=== PATIENT | male | born 1970 | race Caucasian/White ===

== ENCOUNTER → 2017-05-01 | Outpatient (CLI) | payer BC ==
--- NOTE | 2017-05-01 20:28 | CT ---
EXAMINATION TYPE: CT sinus wo con DATE OF EXAM: 05/01/2017 COMPARISON: NONE HISTORY: Recurrent sinus infections. CT DLP: 641.60 mGycm. Automated Exposure Control for Dose Reduction was Utilized. TECHNIQUE: CT scan of the sinuses is performed without contrast, axial images are obtained, coronal r eformatted images are also reviewed. FINDINGS: There is minimal mucosal thickening at the floor of the left maxillary sinus. There is bila teral patency of the ostiomeatal complex. Maxilla is intact. I see no bony destructive process. There is mild mucosal thickening in the anterior ethmoid and frontal sinuses. Orbital margins are intact.. IMPRESSION: Mild sinusitis as above.
== END | disposition home or self-care (01) ==
LOC: RADCTMAIN 18:44
PROVIDERS: ATTEND Otolaryngology
DX: J32.9 Chronic sinusitis, unspecified (principal)
CPT/HCPCS: 70486

== ENCOUNTER → 2018-03-07 | Day surgery (SDC) | payer BC ==
[2018-03-01 16:32] VITALS: BMI 33.5
[~2018-03-07] MED LIST: PROPOFOL 10 MG/ML 20 ML VIAL IV ONE
--- NOTE | 2018-03-07 13:50 | PCN ---
PROCEDURE NOTE REQUESTING PHYSICIAN: Dr. Mccauley INDICATION: The patient is a 47-year-old pleasant white male scheduled for an elective colonoscopy as a part of evaluation of change in bowel habits and intermittent rectal bleeding for the last several months duration. He is, hence, scheduled for a colonoscopy to evaluate further. PROCEDURE PERFORMED: Performed colonoscopy with biopsy. PREOPERATIVE DIAGNOSES: Change in bowel habits and intermittent rectal bleeding. IV sedation per Anesthesia. PROCEDURE: The procedure after informed consent was obtained, the patient was brought into the endoscopy unit. IV conscious sedation was administered by Anesthesia under continuous monitoring. Initial digital rectal examination was normal. The Olympus CA190 colonoscope was then inserted into the rectum and gradually advanced into the cecum without any difficulty. Careful examination was performed as the scope was gradually being withdrawn. The ileocecal valve and appendiceal orifice were visualized and appeared normal. The prep was excellent. The terminal ileum was intubated, 10 cm of the terminal ileum was visualized and appeared normal. Mucosa of the cecum, ascending colon, transverse colon, descending colon, sigmoid colon and rectum appeared normal. In the rectum, there was a 2 to 3 mm sessile polyp that was removed by biopsy. Random biopsies were also done from the ascending and descending colon to rule out microscopic/collagenous colitis. Small internal hemorrhoids were seen. The patient tolerated the procedure well. IMPRESSION: 1. Small internal hemorrhoids. 2. A 2 to 3 mm sessile distal rectal polyp status post removal by biopsy. RECOMMENDATIONS: The findings of this examination were discussed with the patient as well as his family. He was advised to follow with biopsy results. In the meantime, he can use over-the- counter Imodium as needed for the chronic diarrhea. If the biopsies show a tubular adenoma, he can have a repeat colonoscopy in 5 years. MMODL / IJN: [id number] /
--- NOTE | 2018-03-10 20:16 | CDI ---
Date: 03/10/18 CDS/Slat Basket Maker Helper Machine Name: Johnna Valle Phone: If any questions, call Lorenza Bravo [employer] at [phone] Patient Name: Mehran Puentes Admit Date: 03/07/18 Discharge Date: 03/07/18 ATTENTION: The [facility] Coding Staff appreciate your assistance in clarifying documentation. Please respond to the clarification below the line at the bottom and electronically sign. The [facility] Coding staff will review the response and follow-up if needed. Please note: Queries are made part of the Legal Health Record. If you have any questions, please contact the Cuff Matcher. Dear Dr. Torres, Please provide clarification as to what method of biopsy was used to remove the rectal polyp. Please clarify if it was hot or cold biopsy. Thank you for your kind consideration. MTDD
--- NOTE | 2018-03-11 07:30 | CDI ---
Date: CDS/Manager Dialysis Name: Johnna Valle Phone: If any questions, call Lorenza Bravo [employer] at [phone] Patient Name: Mehran Puentes Admit Date: 03/07/18 Discharge Date: 03/07/18 ATTENTION: The [facility] Coding Staff appreciate your assistance in clarifying documentation. Please respond to the clarification below the line at the bottom and electronically sign. The [facility] Coding staff will review the response and follow-up if needed. Please note: Queries are made part of the Legal Health Record. If you have any questions, please contact the [employer]. Dear Dr. Torres, Please provide clarification as to what method of biopsy was used to remove the rectal polyp. Please clarify if it was hot or cold biopsy. Thank you for your kind consideration. _ Polyp was removed by cold biopsy Satya MTDD
== END ==
LOC: ORWHC2ENDO 10:35
PROVIDERS: ATTEND Internal Medicine Gastroenterology
DX: K64.8 Other hemorrhoids (principal); K62.1 Rectal polyp; Z87.891 Personal history of nicotine dependence; F39 Unspecified mood [affective] disorder; Z88.1 Allergy status to other antibiotic agents
CPT/HCPCS: 88305; 45380; J2704

== ENCOUNTER → 2018-05-11 | Outpatient (CLI) | payer BC ==
--- NOTE | 2018-05-11 20:06 | MR ---
EXAMINATION TYPE: MR iac wo/w con DATE OF EXAM: 05/11/2018 COMPARISON: None HISTORY: Lt sided hearing loss, ringing in lt ear TECHNIQUE: Multiplanar, multisequence images of the brain and brainstem is performed without and with IV contras t, utilizing 10 mL intravenous Gadavist . FINDINGS: Diffusion weighted images demonstrate no evidence of a recent infarct or other diffusion ab normality. The ventricular system and cisternal spaces are normal in size and appearance. The brain volume is age appropriate. Midline structures demonstrate normal morphology. The craniocervical junction appears within normal limits. Post contrast images demonstrate no abnormal enhancement. There is no evidence of cerebellopontine angle mass or acoustic schwannoma. Changes of chronic sinusitis are noted. Area of abnormal signal in the left parietal white matter teodoro sures 11 mm. IMPRESSION: 1. No evidence of cerebellopontine angle mass or acoustic schwannoma. 2. There is a single 11 mm area of abnormal signal in the left parietal white matter which is nonspec ific could be seen with remote microvascular ischemia. Demyelinating process not excluded. Correlate clinically. 3. Changes of chronic sinusitis.
== END | disposition home or self-care (01) ==
LOC: RADMRIMAIN 18:48
PROVIDERS: ATTEND Otolaryngology
DX: R93.0 Abnormal findings on diagnostic imaging of skull and head, not elsewhere classified (principal); H91.90 Unspecified hearing loss, unspecified ear; H93.3X9 Disorders of unspecified acoustic nerve; H93.19 Tinnitus, unspecified ear
CPT/HCPCS: 70553; A9581

== ENCOUNTER → 2020-05-06 | Outpatient (CLI) | payer BC ==
--- NOTE | 2020-05-06 17:17 | XR ---
EXAMINATION TYPE: XR chest 2V DATE OF EXAM: 05/06/2020 CLINICAL HISTORY: Sarcoidosis TECHNIQUE: Frontal and lateral views of the chest are obtained. COMPARISON: None FINDINGS: The cardiomediastinal silhouette is within normal limits for size. Pulmonary vasculature i s normal. No evidence of hilar or paratracheal adenopathy. There is no focal air space opacity, pleur al effusion, or pneumothorax seen. The osseous structures are intact. IMPRESSION: No acute cardiopulmonary process.
== END | disposition home or self-care (01) ==
LOC: LABWHC1 13:40
PROVIDERS: ATTEND Nurse Practitioner Family
DX: R05 Cough (principal); D86.9 Sarcoidosis, unspecified; Z87.898 Personal history of other specified conditions
CPT/HCPCS: 36415; 71046; 82164

== ENCOUNTER → 2020-05-27 | Outpatient (CLI) | payer BC ==
--- NOTE | 2020-05-28 07:27 | XR ---
EXAMINATION TYPE: XR cervical spine comp DATE OF EXAM: 05/27/2020 CLINICAL HISTORY: pain COMPARISON: NONE TECHNIQUE: Frontal, lateral, oblique, swimmers, and open mouth view of the cervical spine are obtaine d. FINDINGS: The cervical spine is visualized in its entirety from C1 thru the top of T1 level. It is s atisfactory in alignment without evidence of acute fracture or dislocation. The pre-vertebral soft t issue appears within normal limits. There is mild degenerative narrowing at C5-6 and C6-7. Mild ventr al and dorsal spondylosis noted at each level. The C1-C2 articulation is unremarkable on the open nadine th view. The oblique images are within normal limits. IMPRESSION: No acute fracture or dislocation is seen in the cervical spine.ICD 10 NO FRACTURE, INITI AL EVALUATION
--- NOTE | 2020-05-28 07:27 | XR ---
EXAMINATION TYPE: XR thoracic spine complete DATE OF EXAM: 05/27/2020 CLINICAL HISTORY: pain TECHNIQUE: Frontal, lateral, and swimmer's view of thoracic spine are obtained. COMPARISON: None. FINDINGS: Thoracic spine show satisfactory alignment without evidence of acute fracture or dislocatio n. Vertebral body heights are preserved. Mild multilevel degenerative disc space narrowing and spond ylosis. Visualized ribs are unremarkable. IMPRESSION: No acute fracture or dislocation is seen in the thoracic spine. ICD 10 NO FRACTURE, INIT IAL EVALUATION
== END | disposition home or self-care (01) ==
LOC: RAD 16:41
PROVIDERS: ATTEND Family Medicine
DX: M54.2 Cervicalgia (principal); M54.6 Pain in thoracic spine
CPT/HCPCS: 72050; 72072

== ENCOUNTER 2020-11-27 07:00 | Day surgery (SDC) | payer BC ==
[2020-11-25 09:18] VITALS: BMI 32.5
[~2020-11-27 07:00] MED LIST changes: +LACTATED RINGERS 1,000 ML IV SCH; -PROPOFOL 10 MG/ML 20 ML VIAL IV ONE
[2020-11-27 07:29] VITALS: RESP 16; TEMP 97.6
[2020-11-27] MEDS ORDERED: LIDOCAINE 1% INJ 10MG/ML (20 ML MDV) ONE (08:02)
[2020-11-27] MEDS ORDERED: PROPOFOL 10 MG/ML 20 ML VIAL IV ONE (08:02)
--- NOTE | 2020-11-27 08:13 | P.PCN ---
Date of Procedure: 11/27/20 Procedure(s) Performed: BRIEF HISTORY: Patient is a 50-year-old, pleasant, white male scheduled for an upper endoscopy as a part of evaluation of intermittent dysphagia to solids and excessive belching for the last few months duration. He was recently started on omeprazole 20 mg daily and symptoms are gradually improving.. PROCEDURE PERFORMED: Esophagogastroduodenoscopy with biopsy. PREOPERATIVE DIAGNOSIS: Excessive belching/intermittent dysphagia to solids. IV sedation per anesthesia. PROCEDURE: After informed consent was obtained, the patient was brought into the endoscopy unit. IV sedation was administered by Anesthesia under continuous monitoring. Initially the Olympus GIF-140 video endoscope was inserted into the mouth. Esophagus intubated without any difficulty. It was gradually advanced into the stomach and duodenum and carefully examined. The bulb and the second part of the duodenum appeared normal. The scope at this time was withdrawn to the stomach, adequately insufflated with air, and upon careful examination, mucosa of the antrum, had mild gastritis and biopsies were done from this area. The body, cardia and the fundus appeared normal. The scope was then withdrawn into the esophagus. The GE junction was located at 39 cm from the incisors. Small sliding Hiatal hernia noted. There was some circumferential erythema the GE junction consistent with LA grade A reflux esophagitis. The rest of the esophagus appeared normal. There were no erosions or ulcerations seen and the patient tolerated the procedure well. IMPRESSION: 1. Mild antral gastritis. 2. Small hiatal hernia with LA grade A reflux esophagitis. RECOMMENDATIONS: The findings of this examination were discussed with the patient as well as his family. He was advised to continue with Prilosec 20 mg daily and follow antireflux measures. He'll be seen in office in 2 weeks..
[2020-11-27 08:32] VITALS: BP 123/74; PULSE 91
== END 2020-11-27 08:52 | disposition home or self-care (01) ==
LOC: ORWHC2ENDO 07:00
PROVIDERS: ATTEND Internal Medicine Gastroenterology
DX: K29.50 Unspecified chronic gastritis without bleeding (principal); K21.00 Gastro-esophageal reflux disease with esophagitis, without bleeding; K44.9 Diaphragmatic hernia without obstruction or gangrene; R13.10 Dysphagia, unspecified; Z79.82 Long term (current) use of aspirin; Z79.899 Other long term (current) drug therapy; Z88.1 Allergy status to other antibiotic agents
CPT/HCPCS: 88305; 43239; J2001; J2704

== ENCOUNTER → 2020-12-03 | Outpatient (CLI) | payer BC ==
--- NOTE | 2020-12-04 11:00 | ECHOF ---
Referral Reason:R94.31 Abnormal EKG I10 hypertension MEASUREMENTS -------- HEIGHT: 180.3 cm WEIGHT: 108.9 kg BP: RVIDd: 3.0 cm (< 3.3) IVSd: 1.9 cm (0.6 - 1.1) LVIDd: 2.7 cm (3.9 - 5.3) LVPWd: 2.0 cm (0.6 - 1.1) IVSs: 2.6 cm LVIDs: 1.0 cm LVPWs: 2.2 cm LAESV Index (A-L): 21.76 ml/m Ao Diam: 3.1 cm (2.0 - 3.7) AV Cusp: 2.1 cm (1.5 - 2.6) MV E Pavan: 0.69 m/s MV DecT: 210 ms MV A Pavan: 0.99 m/s MV E/A Ratio: 0.69 RAP: 5.00 mmHg RVSP: 29.39 mmHg FINDINGS -------- Sinus rhythm. This was a technically adequate study. The left ventricular size is normal. There is severe concentric left ventricular hypertrophy. Ove rall left ventricular systolic function is normal with, an EF between 60 - 65 %. The diastolic fill ing pattern is normal for the age of the patient 8.15. The right ventricle is normal in size. Normal LA size by volume 22+/-6 ml/m2. The right atrial size is normal. Interatrial and interventricular septum intact. There is no evidence of aortic regurgitation. There is no evidence of aortic stenosis. No mitral regurgitation. Mild tricuspid regurgitation present. There is no evidence of pulmonary hypertension. The right v entricular systolic pressure, as measured by Doppler, is 29.39mmHg. There is no pulmonic regurgitation present. The aortic root size is normal. IVC Not well visulized. There is no pericardial effusion. CONCLUSIONS -------- 1. The left ventricular size is normal. 2. There is severe concentric left ventricular hypertrophy. 3. Overall left ventricular systolic function is normal with, an EF between 60 - 65 %. 4. The diastolic filling pattern is normal for the age of the patient 8.15 5. Mild tricuspid regurgitation present. DENTAL APPLIANCE REPAIRER: Rachel Wiley [facility]
== END | disposition home or self-care (01) ==
LOC: RADECHMAIN 16:23
PROVIDERS: ATTEND Family Medicine
DX: I07.1 Rheumatic tricuspid insufficiency (principal); I10 Essential (primary) hypertension
CPT/HCPCS: 93306

== ENCOUNTER → 2022-06-17 | Outpatient (CLI) | payer BC ==
--- NOTE | 2022-06-17 11:47 | US ---
EXAMINATION TYPE: US abdomen complete DATE OF EXAM: 06/17/2022 COMPARISON: NONE CLINICAL HISTORY: R10.9 ABD PAIN. Left side pain per patient. No abnormal labs TECHNIQUE: Multiple sonographic images of the abdomen are obtained. FINDINGS: EXAM MEASUREMENTS: Liver Length: 19.8 cm Gallbladder Wall: 0.2 cm CBD: 0.3 cm Spleen: 12.5 cm Right Kidney: 12.8 x 5.6 x 6.3 cm Left Kidney: 12.5 x 5.6 x 6.5 cm Pancreas: Tail obscured by overlying bowel gas Liver: Increased attenuation, decreased visualization of vessels suggestive of fatty infiltrate. En larged in size. Gallbladder: No stones or wall thickening visualized. folds seen Evidence for sonographic Anderson's sign: neg CBD: wnl Spleen: wnl Right Kidney: Mid cortical cystic lesion = 1.2 x 1.0 x 0.9 cm Left Kidney: No hydronephrosis or masses seen Upper IVC: wnl Abd Aorta: No AAA visualized at time of scan, limited due to bowel gas IMPRESSION: 1. Hepatomegaly with mild fatty infiltration. 2. Tiny cortical renal cyst noted right kidney
== END | disposition home or self-care (01) ==
LOC: RADUSWWP 06:47
PROVIDERS: ATTEND Internal Medicine
DX: K76.0 Fatty (change of) liver, not elsewhere classified (principal); N28.1 Cyst of kidney, acquired; R16.0 Hepatomegaly, not elsewhere classified
CPT/HCPCS: 76700

== ENCOUNTER → 2022-11-24 | Outpatient (CLI) | payer BC ==
--- NOTE | 2022-11-24 17:06 | XR ---
EXAMINATION TYPE: XR cervical spine limited DATE OF EXAM: 11/24/2022 4:31 PM INDICATION: Patient age:Male; 52 years old; Reason for study: M25.512, M54.2, R07.81; COMPARISON: 05/27/2020 TECHNIQUE: The cervical spine was imaged in frontal, lateral, odontoid and bilateral oblique. FINDINGS: The osseous structures show normal alignment without evidence of an acute fracture. There are osteoph ytes noted throughout the cervical spine on the anterior and lateral aspects of the vertebral bodies. The intervertebral disk spaces are narrowed at multiple levels Pedicles are intact. Soft tissues ar e within normal limits. The odontoid appears intact. Ligament calcifications. IMPRESSION: 1. No fracture or dislocation. 2. Mild degenerative disc disease changes of the cervical spine.
--- NOTE | 2022-11-24 17:07 | XR ---
EXAMINATION TYPE: XR ribs LT DATE OF EXAM: 11/24/2022 4:31 PM INDICATION: Patient age:Male; 52 years old; Reason for study: M25.512, M54.2, R07.81; [facility]. COMPARISON: Chest radiograph 05/06/2020 TECHNIQUE: Frontal and oblique views of the left ribs FINDINGS: The ribs have a normal appearance. No evidence of fracture. There is prominence of the rig ht perihilar region which may be due to rotation. The cardiac silhouette is prominent in size. The r emaining osseous structures are intact. IMPRESSION RIBS: 1. No acute osseous pathology. 2. Prominence of the right perihilar region which may be due to rotation. Further evaluation with est radiograph is recommended.
--- NOTE | 2022-11-24 17:08 | XR ---
EXAMINATION TYPE: XR shoulder complete LT DATE OF EXAM: 11/24/2022 4:31 PM INDICATION: Patient age:Male; 52 years old; Reason for study: M25.512, M54.2, R07.81; COMPARISON: None TECHNIQUE: The left shoulder was examined in AP, internally rotated and scapular Y projections. . FINDINGS: No evidence of acute osseous pathology, joint dislocation, or soft tissue swelling. The remaining por tions of the visualized chest are unremarkable. IMPRESSION: No acute osseous pathology.
== END | disposition home or self-care (01) ==
LOC: RADXRMAIN 16:00
PROVIDERS: ATTEND Family Medicine
DX: M50.30 Other cervical disc degeneration, unspecified cervical region (principal); M25.512 Pain in left shoulder; R07.81 Pleurodynia
CPT/HCPCS: 72040

== ENCOUNTER → 2022-11-29 | Outpatient (CLI) | payer BC ==
--- NOTE | 2022-11-30 07:21 | XR ---
EXAMINATION TYPE: XR chest 2V DATE OF EXAM: 11/29/2022 COMPARISON: 05/06/2020 HISTORY: Shortness of breath TECHNIQUE: Frontal and lateral views of the chest are obtained. FINDINGS: Scattered senescent parenchymal changes noted. Hyperinflation compatible with COPD. No evidence for infiltrate. No evidence for atelectasis. Heart size is stable. Mediastinal structures are stable and grossly unremarkable. No evidence for hilar prominence. Degenerative changes dorsal spine. IMPRESSION: 1. No evidence for acute pulmonary disease.
== END | disposition home or self-care (01) ==
LOC: RADXRMAIN 16:31
PROVIDERS: ATTEND Family Medicine
DX: R07.81 Pleurodynia (principal); R06.02 Shortness of breath
CPT/HCPCS: 71046

== ENCOUNTER 2023-03-28 08:23 | Day surgery (SDC) | payer BC ==
[~2023-03-28 08:23] MED LIST changes: +LIDOCAINE 1% (10MG/ML) FOR IV START INTRADERMA PRN
[2023-03-28 09:09] VITALS: TEMP 97.4
[2023-03-28] MEDS ORDERED: PROPOFOL 10 MG/ML 20 ML VIAL IV ONE (09:59)
--- NOTE | 2023-03-28 10:19 | P.PCN ---
Date of Procedure: 03/28/23 Procedure(s) Performed: BRIEF HISTORY: Patient is a 51-year-old pleasant white male scheduled for an elective colonoscopy as a part of evaluation of prior history of colon polyps. PROCEDURE PERFORMED: Colonoscopy with biopsy. PREOPERATIVE DIAGNOSIS: History of colon polyps. IV sedation per Anesthesia. PROCEDURE: After informed consent was obtained, the patient, was brought into the endoscopy unit. IV sedation was administered by Anesthesia under continuous monitoring. Digital rectal examination was normal. Initially the Olympus CF-160 flexible video colonoscope was then inserted in the rectum, gradually advanced into the cecum without any difficulty. Careful examination was performed as the scope was gradually being withdrawn. Ileocecal valve and the appendiceal orifice were visualized and appeared normal. Prep was excellent. Mucosa of the cecum, ascending colon, transverse colon, descending colon, sigmoid colon, and rectum appeared normal. In the distal sigmoid: There was a 3 mm polyp that was removed by cold biopsy. Retroflexion was performed in the rectum and grade 2 internal h emorrhoids were seen. The patient tolerated the procedure well. IMPRESSION: 3 mm; sigmoid polyp status post cold biopsy Grade 2 internal hemorrhoids RECOMMENDATIONS: Findings of this examination were discussed with the patient as his family. He was advised to be a high-fiber diet and take fiber supplements a regular basis and avoid straining and constipation. Recommend repeat screening colonoscopy in 10 years..
[2023-03-28 10:24] VITALS: RESP 14
[2023-03-28 10:51] VITALS: BP 118/59; PULSE 78
== END 2023-03-28 10:53 | disposition home or self-care (01) ==
LOC: ORWHC2ENDO 08:23
PROVIDERS: ATTEND Internal Medicine Gastroenterology
DX: Z12.11 Encounter for screening for malignant neoplasm of colon (principal); K63.5 Polyp of colon; K64.1 Second degree hemorrhoids; I10 Essential (primary) hypertension; E78.5 Hyperlipidemia, unspecified; Z87.891 Personal history of nicotine dependence; K75.9 Inflammatory liver disease, unspecified; K21.9 Gastro-esophageal reflux disease without esophagitis; Z79.899 Other long term (current) drug therapy; Z88.1 Allergy status to other antibiotic agents
CPT/HCPCS: 88305; 45380; J2704

== ENCOUNTER 2024-05-24 06:55 | Emergency (ER) | payer BC ==
[2024-05-24 07:10] VITALS: RESP 18; TEMP 97.9
[2024-05-24] MEDS: ASPIRIN 81 MG PO STA (07:39)
[2024-05-24] MEDS: ALPRAZolam 0.25 MG TAB PO STA (07:39)
[2024-05-24] MEDS: SODIUM CHLORIDE 0.9% 1,000 ML IV STA (07:39)
[2024-05-24 07:43] LABS: Basophils % (A) 0 %; Eosinophils # (A) 0.2 k/uL (0-0.7); Eosinophils % (A) 2 %; HCT 43.5 % (39.0-53.0); HGB 14.9 gm/dL (13.0-17.5); Lymphocytes # (A) 1.8 k/uL (1.0-4.8); Lymphocytes % (A) 21 %; MCH 31.8 pg (25.0-35.0); MCHC 34.2 g/dL (31.0-37.0); MCV 92.9 fL (80.0-100.0); Mean Platelet Volume 8.9; Monocytes # (A) 0.4 k/uL (0-1.0); Monocytes % (A) 5 %; Neutrophils # (A) 6.1 k/uL (1.3-7.7); Neutrophils % (A) 71 %; Platelet Count 236 k/uL (150-450); RBC 4.68 m/uL (4.30-5.90); RDW 13.2 % (11.5-15.5); WBC 8.6 k/uL (3.8-10.6)
[2024-05-24 07:53] LABS: ALT 31 U/L (4-49); AST 25 U/L (17-59); African American GFR (CKD) >90 (>60 ml/min/1.73 sqM); Albumin 4.6 g/dL (3.5-5.0); Alkaline Phosphatase 54 U/L (38-126); Anion Gap 10 mmol/L; Blood Urea Nitrogen 13 mg/dL (9-20); Calcium 9.6 mg/dL (8.4-10.2); Carbon Dioxide 27 mmol/L (22-30); Chloride 106 mmol/L (98-107); Glucose 108 mg/dL (74-99); Magnesium 2.2 mg/dL (1.6-2.3); Non-African American GFR(CKD) >90 (>60 ml/min/1.73 sqM); Potassium 4.2 mmol/L (3.5-5.1); Sodium 143 mmol/L (137-145); Total Bilirubin 1.2 mg/dL (0.2-1.3)
[2024-05-24 07:55] LABS: INR 0.9 (<1.2); Partial Thromboplastin Time 23.6 sec (22.0-30.0); Prothrombin Time 10.4 sec (10.0-12.5)
--- NOTE | 2024-05-24 07:57 | ED ---
General Adult HPI - General Chief complaint: Chest Pain Stated complaint: Chest Tightness, High Blood Pressure Time Seen by Provider: 05/24/24 07:21 Source: patient, RN notes reviewed, old records reviewed Mode of arrival: ambulatory Limitations: no limitations - History of Present Illness Initial comments: Patient is a 54-year-old male who presents emergency department complaining of chest pain. Describes it as tightness across both sides of his chest. Occasionally also has left arm pain but currently does not have left arm pain. Unknown if the chest pain is involved with the left arm pain or not. States that this has occurred previously and was diagnosed with anxiety. Recently returned on a trip from [place]. While he was there on Monday he had similar complaints. States that the blood work and EKGs and ended up discharging him saying is likely anxiety. States he did feel better however he is still having intermittent chest discomfort. He is anxious regarding his heart. Presents for further evaluation at this time. Does follow-up with Dr. Alston in the office. Denies any diaphoresis, nausea, vomiting, radiation of the pain. Denies any shortness of breath with the pain. Denies any lower extremity edema or swell ing. Denies any lower extremity pain. No history of blood clots. Is on blood pressure medications as well as anxiety medications. States that Xanax seems to help with his symptoms as he took 1 earlier today prior to arrival and states that it has lessened. The chest tightness comes and goes. It is not persistent. Unknown palliative or provocative factors. - Related Data Home Medications Medication Instructions Recorded Confirmed Atorvastatin [Lipitor] 20 mg PO HS 03/24/23 05/24/24 ALPRAZolam [Xanax] 0.25 mg PO DAILY PRN 05/24/24 05/24/24 Metoprolol Succinate [Toprol XL] 50 mg PO DAILY 05/24/24 05/24/24 Omeprazole [PriLOSEC] 20 mg PO DAILY PRN 05/24/24 05/24/24 busPIRone HCl [Buspar] 10 mg PO BID 05/24/24 05/24/24 tiZANidine [Zanaflex] 2 mg PO Q6HR PRN 05/24/24 05/24/24 Allergies Allergy/AdvReac Type Severity Reaction Status Date / Time cephalexin [From Keflex] Allergy Unknown Hives Verified 05/24/24 08:10 Review of Systems ROS Statement: Those systems with pertinent positive or pertinent negative responses have been documented in the HPI. Review of Systems: CONST: Denies fever EYES: Denies blurry vision ENT: Denies nasal congestion C/V: Endorses chest tightness RESP: Denies shortness of breath GI: Denies abdominal pain : Denies dysuria SKIN: Denies rash. MSK: Denies joint pain. NEURO: Denies headache ROS Other: All systems not noted in ROS Statement are negative. Past Medical History Past Medical History: GERD/Reflux, Hyperlipidemia, Hypertension, Liver Disease, Osteoarthritis (OA) Additional Past Medical History / Comment(s): Blood in stool, benign colon polyp, hemorrhoid, fatty liver disease. History of Any Multi-Drug Resistant Organisms: None Reported Past Surgical History: No Surgical Hx Reported Additional Past Surgical History / Comment(s): COLONOSCOPY Past Anesthesia/Blood Transfusion Reactions: No Reported Reaction Additional Past Anesthesia/Blood Transfusion Reaction / Comment(s): PATIENT HAS NEVER RECEIVED ANESTHESIA Past Psychological History: Anxiety, Depression Smoking Status: Former smoker Past Alcohol Use History: Occasional Past Drug Use History: None Reported - Past Family History Mother Family Medical History: Coronary Artery Disease (CAD) Father Family Medical History: Coronary Artery Disease (CAD) General Exam - General Exam Comments Initial Comments: General: Appears mildly anxious. HEAD: Normal with no signs of head trauma. EYES: PERRLA, EOMI, conjunctiva normal, no discharge. ENT: Hearing grossly intact, normal oropharynx. RESPIRATORY: Clear breath sounds bilaterally. No wheezes, rales, or rhonchi. C/V: Regular rate and rhythm. S1 and S2 auscultated, no edema, peripheral pulses 2+ and intact throughout ABD: Abd is soft, nontender, nondistended EXT: Normal range of motion, no obvious deformity SKIN: No rashes or lesions observed on exposed skin. NEURO: Alert and oriented x 4. Limitations: no limitations Course Vital Signs 05/24/24 05/24/24 05/24/24 07:06 07:30 07:35 Temperature 97.9 F Pulse Rate 92 67 79 Respiratory 18 17 18 Rate Blood Pressure 163/96 159/92 O2 Sat by Pulse 97 95 Oximetry 05/24/24 05/24/24 05/24/24 08:00 08:30 09:00 Temperature Pulse Rate 58 L 58 L 59 L Respiratory 17 14 18 Rate Blood Pressure 159/92 140/81 130/77 O2 Sat by Pulse 97 99 98 Oximetry Medical Decision Making - Medical Decision Making Was pt. sent in by a medical professional or institution (, [facility], [employer], urgent care, hospital, or halfway...) When possible be specific @ -No Did you speak to anyone other than the patient for history (EMS, parent, family, police, friend...)? What history was obtained from this source @ -No Did you review nursing and triage notes (agree or disagree)? Why? @ -I reviewed and agree with nursing and triage notes Were old charts reviewed (outside hosp., previous admission, EMS record, old EKG, old radiological studies, urgent care reports/EKG's, halfway records)? Report findings @ -Compared today's EKG with EKG from November 2020. Displaced no obvious acute ischemic changes today. Patient has a chronic mild T wave inversion in III. Differential Diagnosis (chest pain, altered mental status, abdominal pain women, abdominal pain men, vaginal bleeding, weakness, fever, dyspnea, syncope, headache, dizziness, GI bleed, back pain, seizure, CVA, palpatations, mental health, musculoskeletal)? @ -Differential Chest Pain: Stable Angina, Unstable Angina, STEMI, NSTEMI Aortic Dissection, Pneumothorax, Musculoskeletal, Esophageal Spasm GERD, Cholecystitis, Pancreatitis, Zoster, this is not meant to be an all-inclusive list. EKG interpreted by me (3pts min.). @ -As above X-rays interpreted by me (1pt min.). @ -Chest x-ray revealed no obvious acute cardiopulmonary process. CT interpreted by me (1pt min.). @ -None done U/S interpreted by me (1pt. min.). @ -None done What testing was considered but not performed or refused? (CT, X-rays, U/S, labs)? Why? @ -None What meds were considered but not given or refused? Why? @ -None Did you discuss the management of the patient with other professionals (professionals i.e. [facility] Reeder, [employer]ER, lab, RT, psych nurse, manager social, clothing presser, teacher, hospital admissions officer, director of casework department)? Give summary @ -No Was smoking cessation discussed for >3mins.? @ -No Was critical care preformed (if so, how long)? @ -No Were there social determinants of health that impacted care today? How? (Homele ssness, low income, unemployed, alcoholism, drug addiction, transportation, low edu. Level, literacy, decrease access to med. care, [facility], rehab)? @ -No Was there de-escalation of care discussed even if they declined (Discuss DNR or withdrawal of care, Hospice)? DNR status @ -No What co-morbidities impacted this encounter? (DM, HTN, Smoking, COPD, CAD, Cancer, CVA, ARF, Chemo, Hep., AIDS, mental health diagnosis, sleep apnea, morbid obesity)? @ -Anxiety Was patient admitted / discharged? Hospital course, mention meds given and route, prescriptions, significant lab abnormalities, going to OR and other pertinent info. @ -Patient has a past medical history remarkable for anxiety, hypertension, hyperlipidemia, obesity. Presents emergency department complaining of chest tightness that has been on and off for the last 5 to 7 days. Had recent long distance travel on an airplane to [place] and back. Discussed with the patient we will obtain cardiopulmonary workup including screening D-dimer. Vitals are within acceptable limits. He will receive a dose of aspirin, IV fluids, as well as a small dose of Xanax currently. Patient was in agreement this plan. EKG shows no signs of acute ischemia.Patient's laboratory studies returned remarkable for undetectable D-dimer, undetectable troponin, BNP within normal limits. Remainder the labs unremarkable. Patient's chest x-ray showed no obvious acute cardiopulmonary process. Second EKG showed no obvious acute changes. I reevaluated the patient. Vital signs within acceptable limits. I discussed the workup with him. Chest pain is resolved. I did offer admission to observation at this time which she would like to avoid and would like to go home, however he is amenable to obtaining a second 3-hour troponin. I was in agreement this plan. Repeat troponin remains undetectable. On reevaluation, patient resting comfortably with no acute complaints. Symptoms remain resolved. Upon scan offered observation admission which he declined. With 2 negative troponins 3 hours apart, no dynamic changes on EKG, symptoms resolution, I believe is safer that the patient be discharged home at this time with close follow-up. Recommen ded follow-up with Dr. Torres. 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 Patient was in agreement this plan. Strict return precautions discussed I instructed the patient to follow up with their PCP in the next 1-3 days. I explained that the patient should return to the emergency department if they experience any worsening symptoms. Strict return precautions were discussed with the patient. The patient expressed understanding of these instructions. I answered all questions that the patient had. The patient was discharged home in good condition with their prescriptions and follow up information. Undiagnosed new problem with uncertain prognosis? @ -No Drug Therapy requiring intensive monitoring for toxicity (Heparin, Nitro, Insulin, Cardizem)? @ -No Were any procedures done? @ -No Diagnosis/symptom? @ -Atypical chest pain Acute, or Chronic, or Acute on Chronic? @ -Acute on chronic Uncomplicated (without systemic symptoms) or Complicated (systemic symptoms)? @ -Uncomplicated Side effects of treatment? @ -None Exacerbation, Progression, or Severe Exacerbation] @ -No Poses a threat to life or bodily function? @ -Unlikely at this time - Lab Data Result diagrams: 05/24/24 07:33 05/24/24 07:33 Lab Results 05/24/24 05/24/24 05/24/24 Range/Units 07:33 07:33 07:33 WBC 8.6 (3.8-10.6) k/uL RBC 4.68 (4.30-5.90) m/uL Hgb 14.9 (13.0-17.5) gm/dL Hct 43.5 (39.0-53.0) % MCV 92.9 (80.0-100.0) fL MCH 31.8 (25.0-35.0) pg MCHC 34.2 (31.0-37.0) g/dL RDW 13.2 (11.5-15.5) % Plt Count 236 (150-450) k/uL MPV 8.9 Neutrophils % 71 % Lymphocytes % 21 % Monocytes % 5 % Eosinophils % 2 % Basophils % 0 % Neutrophils # 6.1 (1.3-7.7) k/uL Lymphocytes # 1.8 (1.0-4.8) k/uL Monocytes # 0.4 (0-1.0) k/uL Eosinophils # 0.2 (0-0.7) k/uL Basophils # 0.0 (0-0.2) k/uL PT 10.4 (10.0-12.5) sec INR 0.9 (<1.2) APTT 23.6 (22.0-30.0) sec D-Dimer <0.17 (<0.60) mg/L FEU Sodium 143 (137-145) mmol/L Potassium 4.2 (3.5-5.1) mmol/L Chloride 106 (98-107) mmol/L Carbon Dioxide 27 (22-30) mmol/L Anion Gap 10 mmol/L BUN 13 (9-20) mg/dL Creatinine 0.85 (0.66-1.25) mg/dL Est GFR (CKD-EPI)AfAm >90 (>60 ml/min/1.73 sqM) Est GFR (CKD-EPI)NonAf >90 (>60 ml/min/1.73 sqM) Glucose 108 H (74-99) mg/dL Calcium 9.6 (8.4-10.2) mg/dL Magnesium 2.2 (1.6-2.3) mg/dL Total Bilirubin 1.2 (0.2-1.3) mg/dL AST 25 (17-59) U/L ALT 31 (4-49) U/L Alkaline Phosphatase 54 (38-126) U/L Troponin I (0.000-0.034) ng/mL NT-Pro-B Natriuret Pep 170 pg/mL Total Protein 7.0 (6.3-8.2) g/dL Albumin 4.6 (3.5-5.0) g/dL 05/24/24 05/24/24 Range/Units 07:33 10:45 WBC (3.8-10.6) k/uL RBC (4.30-5.90) m/uL Hgb (13.0-17.5) gm/dL Hct (39.0-53.0) % MCV (80.0-100.0) fL MCH (25.0-35.0) pg MCHC (31.0-37.0) g/dL RDW (11.5-15.5) % Plt Count (150-450) k/uL MPV Neutrophils % % Lymphocytes % % Monocytes % % Eosinophils % % Basophils % % Neutrophils # (1.3-7.7) k/uL Lymphocytes # (1.0-4.8) k/uL Monocytes # (0-1.0) k/uL Eosinophils # (0-0.7) k/uL Basophils # (0-0.2) k/uL PT (10.0-12.5) sec INR (<1.2) APTT (22.0-30.0) sec D-Dimer (<0.60) mg/L FEU Sodium (137-145) mmol/L Potassium (3.5-5.1) mmol/L Chloride (98-107) mmol/L Carbon Dioxide (22-30) mmol/L Anion Gap mmol/L BUN (9-20) mg/dL Creatinine (0.66-1.25) mg/dL Est GFR (CKD-EPI)AfAm (>60 ml/min/1.73 sqM) Est GFR (CKD-EPI)NonAf (>60 ml/min/1.73 sqM) Glucose (74-99) mg/dL Calcium (8.4-10.2) mg/dL Magnesium (1.6-2.3) mg/dL Total Bilirubin (0.2-1.3) mg/dL AST (17-59) U/L ALT (4-49) U/L Alkaline Phosphatase (38-126) U/L Troponin I <0.012 <0.012 (0.000-0.034) ng/mL NT-Pro-B Natriuret Pep pg/mL Total Protein (6.3-8.2) g/dL Albumin (3.5-5.0) g/dL - EKG Data -: EKG Interpreted by Me EKG Comments: 12-lead Electrocardiogram Interpretation Note EKG was reviewed and interpreted by myself. 12-lead ECG performed at 0715 is interpreted by me as revealing normal sinus rhythm at a rate of 64 beats per minute. Left axis deviation. IA interval is 181 ms, QRS duration is 104 ms, QTc is 414 ms.. There were no acute ST or T wave abnormalities to suggest myocardial ischemia or injury. R wave progression across the precordium was delayed. By my interpretation this EKG is non-diagnostic for acute ischemia. Compared with EKG from November 2020. No significant acute ischemic change present when compared with today's EKG. Slightly inverted T wave in III is chronic. Primary differences patient is currently not in sinus tachycardia. 12-lead Electrocardiogram Interpretation Note EKG was reviewed and interpreted by myself. 12-lead ECG performed at 0830 is interpreted by me as revealing sinus bradycardia at a rate of 55 beats per minute. [place] is normal. IA interval is 195 ms, QRS duration is 102 ms, QTc is 399 ms. Isolated T wave inversion once again demonstrated III which is chronic with no dynamic changes from earlier EKG. There were no ST or T wave abnormalities to suggest myocardial ischemia or injury. R wave progression across the precordium was delayed. By my interpretation this EKG is non- diagnostic for acute ischemia. Disposition Clinical Impression: Atypical chest pain Disposition: HOME SELF-CARE Condition: Good Instructions (If sedation given, give patient instructions): Chest Pain (ED) Is patient prescribed a controlled substance at d/c from ED?: No Referrals: Max Mijares DO [Primary Care Provider] - 1-2 days Time of Disposition: 11:22
--- NOTE | 2024-05-24 08:00 | XR ---
EXAMINATION TYPE: XR chest 2V DATE OF EXAM: 05/24/2024 COMPARISON: 11/29/2022 HISTORY: Shortness of breath TECHNIQUE: Frontal and lateral views of the chest are obtained. FINDINGS: Scattered senescent parenchymal changes noted. Hyperinflation compatible with COPD. No evidence for infiltrate. No evidence for atelectasis. Heart size is stable. Mediastinal structures are stable and grossly unremarkable. No evidence for hilar prominence. Degenerative changes dorsal spine. IMPRESSION: 1. No evidence for acute pulmonary disease.
[2024-05-24 08:01] LABS: NT-Pro-B-Type Natriuretic Pept 170 pg/mL
[2024-05-24 11:24] VITALS: BP 148/101; PULSE 61
== END 2024-05-24 11:27 | disposition home or self-care (01) ==
LOC: EC 06:55
CPT/HCPCS: 36415; 71046; 80053; 83735; 83880; 84484; 85025; 85379; 85610; 85730; 93005; 96360; 96361; 99285